=== PATIENT | female | born 1940 ===

== ENCOUNTER 2016-12-03 11:30 | Emergency (ER) | payer MEDICARE ==
[2016-12-03 11:49] VITALS: BP 111/65; PULSE 67; RESP 16; TEMP 97.8; O2SAT 98; BMI 25.1
--- NOTE | 2016-12-03 13:05 | RAD ---
PROCEDURE: Right knee dated 12/03/2016 AP lateral and sunrise views of the right knee performed. HISTORY: pain COMPARISON: No prior study available for comparison. FINDINGS: BONES: No evidence of acute displaced fracture nor dislocation. Osseous structures appear intact. JOINTS: Degenerative osteoarthritis most notably affecting the medial compartment with medial joint space narrowing and marginal medial osteophyte formation. A prominent posterior patellar osteophytes also present JOINT EFFUSION: . Questionable trace joint effusion. OTHER FINDINGS: None. IMPRESSION: No acute fracture. DJD most notably affecting the medial and patellofemoral compartments.
--- NOTE | 2016-12-03 13:08 | ED PDOC ---
Lower Extremity Pain/Injury Time Seen by Provider: 12/03/16 12:02 Chief Complaint (Nursing): Lower Extremity Problem/Injury Chief Complaint (Provider): Lower Extremity Problem/Injury History Per: Patient History/Exam Limitations: no limitations, language barrier ([id number] video phone) Onset/Duration Of Symptoms: Days Current Symptoms Are (Timing): Still Present Severity: Mild Additional Complaint(s): Patient is a 76 year old female with a history of arthritis, presents to ED for right knee pain and occasional swelling for 2 weeks. Patient reports pain is chronic but has worsened. Denies chest pain, palpations, back pain, lower leg swelling. History of varicose veins with striping bilaterally. Past Medical History Reviewed: Historical Data, Nursing Documentation, Vital Signs Vital Signs: Last Vital Signs Temp 97.8 F 12/03/16 11:48 Pulse 67 12/03/16 11:48 Resp 16 12/03/16 11:48 BP 111/65 12/03/16 11:48 Pulse Ox 98 12/03/16 11:48 - Medical History PMH: Arthritis Denies: Chronic Kidney Disease - Surgical History Surgical History: - Family History Family History: States: Unknown Family Hx - Living Arrangements Living Arrangements: With Family - Home Medications Home Medications: Ambulatory Orders Medication Instructions Recorded Ca Pantothenate/Folic Acid/V [Once 1 tab PO DAILY 07/19/14 Daily Multi-Vitamin] Calcium/Vitamin D [Calcium + D 600 2 tab PO DAILY 07/19/14 mg-200 Iu] Glucosamine Hydrochloride 2 cap PO DAILY 07/19/14 [Glucosamine HCl] traMADol [Ultram] 50 mg PO Q6 PRN #16 tab 08/02/15 Docusate [Colace] 100 mg PO BID #10 cap 06/05/16 oxyCODONE/Acetaminophen [Percocet 1 ea PO Q6 PRN #10 tab 06/05/16 5/325 mg Tab] Cephalexin [cephalexin] 500 mg PO BID #14 cap 09/24/16 Terbinafine HCl 250 mg PO BID #28 tablet 09/24/16 - Allergies Allergies/Adverse Reactions: Allergies Allergy/AdvReac Type Severity Reaction Status Date / Time No Known Allergies Allergy Verified 12/03/16 11:51 Review of Systems ROS Statement: Except As Marked, All Systems Reviewed And Found Negative Constitutional: Negative for: Weakness Cardiovascular: Negative for: Chest Pain, Palpitations Respiratory: Negative for: Shortness of Breath, Hemoptysis Musculoskeletal: Positive for: Leg Pain. Negative for: Back Pain, Foot Pain Skin: Negative for: Rash Neurological: Negative for: Weakness, Numbness Physical Exam - Reviewed Nursing Documentation Reviewed: Yes Vital Signs Reviewed: Yes - Physical Exam Appears: Positive for: Non-toxic, No Acute Distress Skin: Positive for: Normal Color, Warm Eye Exam: Positive for: Normal appearance Neck: Positive for: Normal, Painless ROM Cardiovascular/Chest: Positive for: Regular Rate, Rhythm. Negative for: Murmur Respiratory: Positive for: Normal Breath Sounds. Negative for: Respiratory Distress Back: Positive for: Normal Inspection. Negative for: Vertebral Tenderness Extremity: Positive for: Normal ROM, Tenderness (Right knee: (+) pain with flextion, tenderness anterior knee with possible effusion medially ), Other ( Arthritic changes to bilateral hands. Varicose veins bilaterallys. ). Negative for: Pedal Edema, Calf Tenderness, Deformity Neurologic/Psych: Positive for: Alert, Oriented - ECG O2 Sat by Pulse Oximetry: 98 (RA) Pulse Ox Interpretation: Normal Medical Decision Making Medical Decision Making: Time: 1220 Initial impression: Knee pain like related to arthritis r/o DVT sec to veins Initial plan: -- Knee xray -- Tylenol PO -- Duplex Scribe Attestation: Documented by Janeen Jauregui acting as a scribe for Rangel Pineda PA-C. MD Scribe Attestation: All medical record entries made by the Scribe were at my direction and personally dictated by me. I have reviewed the chart and agree that the record accurately reflects my personal performance of the history, physical exam, medical decision making, and the department course for this patient. I have also personally directed, reviewed, and agree with the discharge instructions and disposition. US: duplex IMPRESSION: No evidence of deep venous thrombosis in the right lower extremity. X-ray: IMPRESSION: No acute fracture. DJD most notably affecting the medial and patellofemoral compartments. pain improved knee immbolizer placed discussed need for tylenol for pain, follow up with PMD for re-evaluation return information discussed stable for discharge Disposition - Clinical Impression Clinical Impression: DJD (degenerative joint disease) of knee - Patient ED Disposition Is Patient to be Admitted: No Counseled Patient/Family Regarding: Studies Performed, Diagnosis, Need For Followup, Rx Given - Disposition Referrals: Warren Gtz III, MD [Staff Provider] - [facility] [Outside] Disposition: Routine/Home Disposition Time: 14:29 Condition: IMPROVED Additional Instructions: tylenol and motrin over the counter for pain follow up without fail with your doctor return for any new concerns do not wear the brace to sleep. Instructions: Arthritis (ED), Knee Pain (ED), Osteoarthritis (ED) Print Language: SALVADOREAN
--- NOTE | 2016-12-03 14:23 | US ---
PROCEDURE: Right lower extremity venous duplex Doppler. HISTORY: pain COMPARISON: None available. TECHNIQUE: Common femoral, superficial femoral, popliteal and posterior tibial veins were evaluated. Flow was assessed with color Doppler, compressibility, assessment of phasic flow and augmentation response. FINDINGS: COMMON FEMORAL VEIN: Unremarkable. SUPERFICIAL FEMORAL VEIN: Unremarkable. POPLITEAL VEIN: Unremarkable. POSTERIOR TIBIAL VEIN: Unremarkable. OTHER FINDINGS: None. IMPRESSION: No evidence of deep venous thrombosis in the right lower extremity.
== END 2016-12-03 15:00 | disposition home or self-care (01) ==
LOC: H.ER 11:30
DX: M17.11 Unilateral primary osteoarthritis, right knee (principal)

== ENCOUNTER 2017-06-20 22:14 | Emergency (ER) | payer MEDICARE ==
[2017-06-20 22:15] VITALS: BMI 25.1
[2017-06-20 22:24] VITALS: TEMP 98.1
[2017-06-20] MEDS ORDERED: Oxycodone/Acetaminophen 5/325 mg Tab PO ONE (22:41)
--- NOTE | 2017-06-20 22:48 | ED PDOC ---
HPI: General Adult Time Seen by Provider: 06/20/17 22:28 Chief Complaint (Nursing): Chest Pain Chief Complaint (Provider): Back pain History Per: Patient History/Exam Limitations: no limitations Onset/Duration Of Symptoms: Days (today) Current Symptoms Are (Timing): Still Present Additional Complaint(s): Pt. developed low back pain like spasms today morning. Took ibuprofen 2 hrs ago and still has pain. Pt. has had same pain in the past and goes away. No new injury. Same type of pain on the right lateral chest that occurs on movement. No dyspnea, weakness, dizziness, headaches, numbness, tingles, incontinence, constipation. No abd pain. No leg pain. Pain in back also present on movement. Past Medical History Reviewed: Historical Data, Nursing Documentation, Vital Signs Vital Signs: Last Vital Signs Temp 98.1 F 06/20/17 22:20 Pulse 79 06/20/17 22:52 Resp 16 06/20/17 22:20 BP 135/69 06/20/17 22:52 Pulse Ox 99 06/20/17 22:51 - Medical History PMH: Arthritis Denies: Chronic Kidney Disease - Surgical History Surgical History: - Family History Family History: States: Unknown Family Hx - Living Arrangements Living Arrangements: With Family - Social History Current smoker - smoking cessation education provided: No Alcohol: None Drugs: Denies - Home Medications Home Medications: Ambulatory Orders Medication Instructions Recorded Ca Pantothenate/Folic Acid/V [Once 1 tab PO DAILY 07/19/14 Daily Multi-Vitamin] Calcium/Vitamin D [Calcium + D 600 2 tab PO DAILY 07/19/14 mg-200 Iu] Diazepam [Valium] 2 mg PO BID PRN #6 tab 06/20/17 - Allergies Allergies/Adverse Reactions: Allergies Allergy/AdvReac Type Severity Reaction Status Date / Time No Known Allergies Allergy Verified 12/03/16 11:51 Review of Systems Constitutional: Negative for: Weakness Cardiovascular: Positive for: Chest Pain (right lateral). Negative for: Edema, Light Headedness Respiratory: Negative for: Shortness of Breath Gastrointestinal: Negative for: Nausea, Vomiting, Abdominal Pain Musculoskeletal: Positive for: Back Pain. Negative for: Neck Pain, Shoulder Pain, Arm Pain, Hand Pain, Leg Pain Neurological: Negative for: Weakness, Numbness, Headache, Dizziness Physical Exam - Reviewed Nursing Documentation Reviewed: Yes Vital Signs Reviewed: Yes - Physical Exam Appears: Positive for: Non-toxic, No Acute Distress Head Exam: Positive for: ATRAUMATIC, NORMAL INSPECTION, NORMOCEPHALIC Skin: Positive for: Normal Color, Warm, DRY Neck: Positive for: Normal, Painless ROM Cardiovascular/Chest: Positive for: Regular Rate, Rhythm. Negative for: Chest Non Tender (pain to lateral chest right on movement of body ), Edema Respiratory: Positive for: CNT, Normal Breath Sounds Gastrointestinal/Abdominal: Positive for: Normal Exam, Bowel Sounds, Soft. Negative for: Tenderness Back: Positive for: Other (mild tender across lower). Negative for: L CVA Tenderness, R CVA Tenderness Extremity: Positive for: Normal ROM. Negative for: Tenderness, Pedal Edema Neurologic/Psych: Positive for: Alert, Oriented - ECG ECG: Positive for: Interpreted By Me, Viewed By Me ECG Rhythm: Positive for: Normal QRS, Normal ST Segment, Sinus Rhythm O2 Sat by Pulse Oximetry: 99 Pulse Ox Interpretation: Normal - Radiology X-Ray: Interpreted by Me, Viewed By Me X-Ray Interpretation: No Acute Disease - Progress ED Course And Treament: 2337: Stable. AAOx3. Pain free. Ambulated with no issues. Tolerated PO. Moving with no pain in chest or back. Has 800mg ibuprofen at home. Will rx valium. Disposition - Clinical Impression Clinical Impression: Muscle spasm - Patient ED Disposition Is Patient to be Admitted: No Counseled Patient/Family Regarding: Studies Performed, Diagnosis, Need For Followup, Rx Given - Disposition Referrals: [facility] [Outside] - 06/21/17 Disposition: Routine/Home Disposition Time: 23:39 Condition: STABLE Additional Instructions: Return if not better in 3 days. Prescriptions: Diazepam [Valium] 2 mg PO BID PRN #6 tab PRN Reason: Muscle Spasm Instructions: Muscle Spasm (ED) Forms: [employer] (Chinese) Print Language: TURKMEN
[2017-06-20] MEDS ORDERED: Oxycodone/Acetaminophen 5/325 mg Tab ONE (23:18)
[2017-06-21 00:04] VITALS: BP 139/71; PULSE 73; RESP 19; O2SAT 100
--- NOTE | 2017-06-21 10:31 | RAD ---
PROCEDURE: Radiographs of the Lumbar Spine. HISTORY: back pain COMPARISON: No prior. FINDINGS: BONES: Vertebral bodies are maintained in height. Transverse processes and posterior elements are intact. 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 There is grade 1 anterolisthesis at L5-S1. There is questionable minimal retrolisthesis at L4-5. This is seen on the coned-down lateral view but not on the open lateral view. This is likely due to differences in patient positioning. Normal alignment. No listhesis. No fracture. DISC SPACES: Narrowing of the L4-5 and L5-S1 disc spaces consistent with degenerative disc disease. The remaining intervertebral disc spaces are maintained in height. OTHER FINDINGS: None. IMPRESSION: No acute fracture. Grade 1 anterolisthesis L5-S1. Questionable retrolisthesis, minimal, at L4-5. Degenerative disc disease L4-5 and L5-S1. Rotatory levoscoliosis.
--- NOTE | 2017-06-21 11:06 | RAD ---
HISTORY: Dyspnea COMPARISON: 04/22/2016 TECHNIQUE: Chest PA and lateral FINDINGS: LUNGS: No active pulmonary disease. PLEURA: No significant pleural effusion identified. No pneumothorax apparent. CARDIOVASCULAR: No radiographic findings to suggest acute or significant cardiovascular disease. OSSEOUS STRUCTURES: No significant abnormalities. VISUALIZED UPPER ABDOMEN: Normal. OTHER FINDINGS: None. IMPRESSION: No active disease. No significant interval change compared to the prior examination(s). Concordant results with the preliminary interpretation rendered by the emergency department physician procedure.
--- NOTE | 2017-06-21 12:43 | CARD ---
APPROVED REPORT EKG Measurement Heart [id number] DC [id number] [id number] <Conclusion> Normal sinus rhythm Left axis deviation Abnormal ECG
== END 2017-06-21 00:16 | disposition home or self-care (01) ==
LOC: H.ER 22:14
DX: R07.89 Other chest pain (principal); M62.838 Other muscle spasm

== ENCOUNTER 2018-08-28 08:43 | Observation (INO) | payer MEDICARE ==
[2018-08-28 08:46] VITALS: BMI 22.3
--- NOTE | 2018-08-28 09:53 | ED PDOC ---
Syncope/Near Syncope/Dizziness Time Seen by Provider: 08/28/18 09:22 Chief Complaint (Nursing): Dizziness/Lightheaded Chief Complaint (Provider): Syncope History Per: Patient, Relocation Counselor (Migueljolene #[id number]) History/Exam Limitations: no limitations Onset/Duration Of Symptoms: Mins (just before arrival) Current Symptoms Are (Timing): Still Present Additional Complaint(s): 78 year old female presents to the ED for evaluation of a syncopal episode s/p feeling lightheaded and falling face first on a ceramic floor while at a school just prior to arrival. She reports the episode happened very fast and she is unsure exactly how it happened, but does say she lost consciousness for about one minute before waking up on her own and coming to the ED. Patient is now complaining of a headache. Otherwise denies vomiting, chest pain, and shortness of breath. PMD: Jose G Cadet Past Medical History Reviewed: Historical Data, Nursing Documentation, Vital Signs Vital Signs: Last Vital Signs Temp 97.7 F 08/28/18 08:47 Pulse 82 08/28/18 08:47 Resp 20 08/28/18 08:47 BP 153/77 H 08/28/18 08:47 Pulse Ox 100 08/28/18 08:47 - Medical History PMH: Arthritis Denies: Chronic Kidney Disease - Surgical History Surgical History: Other surgeries: cataracts surgery - Family History Family History: States: Unknown Family Hx - Social History Current smoker - smoking cessation education provided: No Alcohol: None Drugs: Denies - Home Medications Home Medications: Ambulatory Orders Medication Instructions Recorded Ca Pantothenate/Folic Acid/V [Once 1 tab PO DAILY 07/19/14 Daily Multi-Vitamin] Calcium/Vitamin D [Calcium + D 600 2 tab PO DAILY 07/19/14 mg-200 Iu] Diazepam [Valium] 2 mg PO BID PRN #6 tab 06/20/17 Cyclobenzaprine [Cyclobenzaprine 10 mg PO TID PRN #15 tab 06/22/17 HCl] Naproxen [Naprosyn] 500 mg PO BID PRN #15 tablet 06/22/17 - Allergies Allergies/Adverse Reactions: Allergies Allergy/AdvReac Type Severity Reaction Status Date / Time No Known Allergies Allergy Verified 12/03/16 11:51 Review of Systems ROS Statement: Except As Marked, All Systems Reviewed And Found Negative Cardiovascular: Positive for: Light Headedness. Negative for: Chest Pain Respiratory: Negative for: Shortness of Breath Gastrointestinal: Negative for: Vomiting Neurological: Positive for: Headache, Other (loss of consciousness) Physical Exam - Reviewed Nursing Documentation Reviewed: Yes Vital Signs Reviewed: Yes - Physical Exam Appears: Positive for: No Acute Distress Head Exam: Positive for: NORMOCEPHALIC. Negative for: ATRAUMATIC (abrasion over right eyelid with no laceration; small abrasion to right cheek) Skin: Positive for: Normal Color Eye Exam: Positive for: Normal appearance ENT: Positive for: Normal ENT Inspection. Negative for: Other (epistaxis from bilateral nares) Neck: Positive for: Normal, Painless ROM, Supple Cardiovascular/Chest: Positive for: Regular Rate, Rhythm Respiratory: Positive for: Normal Breath Sounds. Negative for: Respiratory Distress Gastrointestinal/Abdominal: Positive for: Normal Exam, Soft. Negative for: Tenderness Back: Positive for: Normal Inspection Extremity: Positive for: Normal ROM, Other (strength 5/5 in bilateral upper and lower extremities) Neurologic/Psych: Positive for: Alert, Oriented (x3). Negative for: Motor/Sensory Deficits - Laboratory Results Result Diagrams: 08/28/18 09:58 08/28/18 09:58 - ECG ECG: Positive for: Interpreted By Me, Viewed By Me ECG Rhythm: Positive for: Normal ST Segment, Sinus Rhythm (normal at 70 bpm). Negative for: ST/T Changes O2 Sat by Pulse Oximetry: 100 (RA) Pulse Ox Interpretation: Normal Medical Decision Making Medical Decision Making: Time: 948 Initial Impression: syncope Initial Plan: --CT head without contrast --CT orbits/facial without contrast --CMP --Trop I --CBC with differential 1025 CT Head FINDINGS: HEMORRHAGE: No intracranial hemorrhage. BRAIN: There are mild chronic microangiopathic changes. There is no mass, mass effect or abnormal extra-axial fluid collection. There is no territorial infarction. The midline sagittal structures are normal. VENTRICLES: There is mild age-related global parenchymal volume loss and proportionate enlargement of the ventricles and cortical sulci. CALVARIUM: There is no calvarial fracture or extracranial soft tissue swelling. PARANASAL SINUSES: Predominantly clear. MASTOID AIR CELLS: Predominantly clear. OTHER FINDINGS: There is moderate right periorbital soft tissue swelling. IMPRESSION: No acute intracranial abnormality. Mild chronic microangiopathic changes and mild age-related global parenchymal volume loss. Moderate right periorbital soft tissue swelling. 1029 CT Orbits FINDINGS: RIGHT ORBIT: RIGHT BONY ORBIT: Normal. RIGHT INTRAORBITAL STRUCTURES: Globe: Normal. Extraocular muscles: Normal. Post septal space: Normal. Optic Nerve: Normal. Lacrimal Apparatus: Normal. RIGHT PRESEPTAL SOFT TISSUES: Moderate periorbital soft tissue swelling. LEFT ORBIT: LEFT BONY ORBIT: Normal. LEFT INTRAORBITAL STRUCTURES: Globe: Normal. Postsurgical changes. Extraocular muscles: Normal. Post septal space: Normal Optic Nerve: Normal. . Lacrimal Apparatus: Normal. LEFT PRESEPTAL SOFT TISSUES: Normal. OTHER: Moderate polypoid mucosal thickening in the right maxillary sinus and mild mucosal thickening in the left maxillary sinus. The nasal septum is deviated to the left IMPRESSION: No acute fracture. Moderate right periorbital soft tissue swelling. No evidence for orbital emphysema, intra bulbar hemorrhage or any other acute finding. 1200 Labs reviewed and unremarkable, and patient tolerated PO. Family at bedside with patient. Scribe Attestation: Documented by Mariela Redmond acting as a scribe for Ganesh Pierre MD. Provider Scribe Attestation: All medical record entries made by the Scribe were at my direction and personally dictated by me. I have reviewed the chart and agree that the record accurately reflects my personal performance of the history, physical exam, [facility] decision making, and the department course for this patient. I have also personally directed, reviewed, and agree with the discharge instructions and disposition. Disposition - Disposition Forms: [employer] (Emirati)
[2018-08-28 10:22] LABS: BASO # 0.1 K/uL (0.0-0.2); LYMPH # 2.3 K/uL (1.0-4.3); LYMPH % 31.3 % (20.0-40.0); MEAN CELL VOLUME 94.2 fl (81.0-99.0); MEAN CORPUSCULAR HGB CONC 32.9 g/dL (33.0-37.0); MEAN PLATELET VOLUME 8.4 fl (7.2-11.7); MONO # 0.7 K/uL (0.0-0.8); MONO % 9.2 % (0.0-10.0); NEUT # 4.3 K/uL (1.8-7.0); NEUT % 58.5 % (50.0-75.0); NRBC % 0.1 % (0.0-0.0); RBC 3.88 Mil/uL (3.80-5.20); RED CELL DISTRIBUTION WIDTH 14.7 % (11.5-14.5); WHITE BLOOD COUNT 7.3 K/uL (4.8-10.8)
[2018-08-28 10:28] LABS: ALBUMIN 4.1 g/dL (3.5-5.0); ALT/SGPT 31 U/L (9-52); AST/SGOT 46 U/L (14-36); BLOOD UREA NITROGEN 17 mg/dl (7-17); CALCIUM 9.6 mg/dL (8.4-10.2); GFR NON-AFRICAN AMERICAN > 60
--- NOTE | 2018-08-28 10:29 | CT ---
Date of service: 08/28/2018 PROCEDURE: CT HEAD WITHOUT CONTRAST. HISTORY: headache COMPARISON: 01/08/2015. TECHNIQUE: Axial computed tomography images were obtained through the head/brain without intravenous contrast. Radiation dose: Total exam DLP = 683.52 mGy-cm. This CT exam was performed using one or more of the following dose reduction techniques: Automated exposure control, adjustment of the mA and/or kV according to patient size, and/or use of iterative reconstruction technique. FINDINGS: HEMORRHAGE: No intracranial hemorrhage. BRAIN: There are mild chronic microangiopathic changes. There is no mass, mass effect or abnormal extra-axial fluid collection. There is no territorial infarction. The midline sagittal structures are normal. VENTRICLES: There is mild age-related global parenchymal volume loss and proportionate enlargement of the ventricles and cortical sulci. CALVARIUM: There is no calvarial fracture or extracranial soft tissue swelling. PARANASAL SINUSES: Predominantly clear. MASTOID AIR CELLS: Predominantly clear. OTHER FINDINGS: There is moderate right periorbital soft tissue swelling. IMPRESSION: No acute intracranial abnormality. Mild chronic microangiopathic changes and mild age-related global parenchymal volume loss. Moderate right periorbital soft tissue swelling.
--- NOTE | 2018-08-28 10:32 | CT ---
Date of service: 08/28/2018 PROCEDURE: CT ORBITS WITHOUT CONTRAST. HISTORY: r facial swelling COMPARISON: None available. TECHNIQUE: Axial CT images of the orbits were obtained. Coronal and sagittal reformats were generated. Radiation dose: Total exam DLP = 693.82 mGy-cm. This CT exam was performed using one or more of the following dose reduction techniques: Automated exposure control, adjustment of the mA and/or kV according to patient size, and/or use of iterative reconstruction technique. FINDINGS: RIGHT ORBIT: RIGHT BONY ORBIT: Normal. RIGHT INTRAORBITAL STRUCTURES: Globe: Normal. Extraocular muscles: Normal. Post septal space: Normal. Optic Nerve: Normal. Lacrimal Apparatus: Normal. RIGHT PRESEPTAL SOFT TISSUES: Moderate periorbital soft tissue swelling. LEFT ORBIT: LEFT BONY ORBIT: Normal. LEFT INTRAORBITAL STRUCTURES: Globe: Normal. Postsurgical changes. Extraocular muscles: Normal. Post septal space: Normal Optic Nerve: Normal. . Lacrimal Apparatus: Normal. LEFT PRESEPTAL SOFT TISSUES: Normal. OTHER: Moderate polypoid mucosal thickening in the right maxillary sinus and mild mucosal thickening in the left maxillary sinus. The nasal septum is deviated to the left IMPRESSION: No acute fracture. Moderate right periorbital soft tissue swelling. No evidence for orbital emphysema, intra bulbar hemorrhage or any other acute finding.
[2018-08-28] MEDS ORDERED: Sodium Chloride 0.9% 1,000 ML IV STA (12:00)
[2018-08-28] MEDS ORDERED: Pneumococcal 23-Valent Vaccine IM ONE (16:00)
--- NOTE | 2018-08-28 19:46 | US ---
Date of service: 08/28/2018 PROCEDURE: Duplex ultrasound of the carotid and vertebral arteries. HISTORY: syncope COMPARISON: None available. TECHNIQUE: Grayscale and duplex Doppler evaluation of the cervical carotid and vertebral arteries were performed. The common carotid, carotid bifurcations and cervical ICA and proximal ECA were evaluated. The vertebral arteries were evaluated for gross patency and direction. FINDINGS: RIGHT CAROTID ARTERIES: Common Carotid Artery: Very mild intimal thickening and plaque. Maximal flow velocity of 73.5 cm/s. Carotid Bifurcation: Mild plaque is noted. Internal Carotid Artery:Mild intimal thickening and plaque. Without luminal narrowing. Maximal flow velocity of 106 cm/s. External Carotid Artery (proximal branches): Normal. Maximal flow velocity of 71 cm/s. ICA/CCA Ratio: 1.9 LEFT CAROTID ARTERIES: Common Carotid Artery: Mild intimal thickening and plaque. Maximal flow velocity of 72 cm/s. Carotid Bifurcation: Mild plaque. Internal Carotid Artery:Mild plaque. Maximal flow velocity of 76 cm/s. External Carotid Artery (proximal branches): Normal. Maximal flow velocity of 64 cm/s. ICA/CCA Ratio: 1.8 VERTEBRAL ARTERIES: Right Vertebral Artery: Patent. Antegrade flow. Left Vertebral Artery: Patent. Antegrade flow. OTHER FINDINGS: No abnormal extrinsic compression. No appreciable adenopathy on the images presented. IMPRESSION: No peak systolic velocity elevation to suggest carotid bifurcation stenosis.
[2018-08-29 06:00] LABS: HDL CHOLESTEROL 55 MG/DL (30-70)
[2018-08-29 06:11] LABS: LDL CHOLESTEROL 102 mg/dL (0-129)
--- NOTE | 2018-08-29 06:49 | CARD ---
APPROVED REPORT Date of service: 08/28/2018 EXAM: Two-dimensional and M-mode echocardiogram with Doppler and color Doppler. Other Information Quality : GoodRhythm : NSR INDICATION Syncope 2D DIMENSIONS IVSd1.11 (0.7-1.1cm)LVDd4.01 (3.9-5.9cm) LVOT Diameter1.77 (1.8-2.4cm)PWd0.82 (0.7-1.1cm) IVSs1.30 (0.8-1.2cm)LVDs2.45 (2.5-4.0cm) FS (%) 39.0 %PWs1.15 (0.8-1.2cm) M-Mode DIMENSIONS Left Atrium (MM)3.27 (2.5-4.0cm)IVSd0.80 (0.7-1.1cm) Aortic Root2.83 (2.2-3.7cm)LVDd4.97 (4.0-5.6cm) Aortic Cusp Exc.1.57 (1.5-2.0cm)PWd0.80 (0.7-1.1cm) IVSs1.29 cmFS (%) 48 % LVDs2.60 (2.0-3.8cm)PWs1.62 cm Aortic Valve AoV Peak Swxmajim787.9cm/sAoV VTI34.7cmAO Peak GR.11mmHg LVOT Peak Xrddbinw652.5cm/sLVOT VTI22.82cmAO Mean GR.5mmHg ZAKI (VMAX)0.65qr6MCH (VTI)0.97cm2 Mitral Valve MV E Qtnfyssq19.6cm/sMV DECEL ARQX559qpBS A Mwhhcqco21.0cm/s MV QZQ49afM/A ratio0.9MVA (PHT)4.63cm2 TDI Lateral E' Peak V9.45cm/sMedial E' Peak V10.59cm/sE/Lateral E'9.0 E/Medial E'8.0 Pulmonary Valve PV Peak Eqydcqeo077.0cm/s Tricuspid Valve TR Peak Traeolns135gj/sRAP DYOAWWQZ35bmPjEI Peak Gr.5mmHg UKQD82qbCy LEFT VENTRICLE The left ventricle is normal size. There is normal left ventricular wall thickness. The left ventricular systolic function is normal. The estimated ejection fraction is 60-65% No regional wall motion abnormalities noted.. Transmitral Doppler flow pattern is Grade I-abnormal relaxation pattern. No left ventricle thrombus noted on this study. There is no ventricular septal defect visualized. There is no left ventricular aneurysm. There is no mass noted in the left ventricle. RIGHT VENTRICLE The right ventricle is normal size. There is normal right ventricular wall thickness. The right ventricular systolic function is normal. ATRIA The left atrium size is normal. The right atrium size is normal. The interatrial septum is intact with no evidence for an atrial septal defect. AORTIC VALVE The aortic valve is normal in structure. Trace aortic regurgitation is present. There is no aortic valvular stenosis. There is no aortic valvular vegetation. MITRAL VALVE The mitral valve is normal in structure. There is no evidence of mitral valve prolapse. There is no mitral valve stenosis. There is no mitral valve regurgitation noted. TRICUSPID VALVE The tricuspid valve is normal in structure. There is trace tricuspid valve regurgitation noted. There is no tricuspid valve prolapse or vegetation. There is no tricuspid valve stenosis. PULMONIC VALVE The pulmonary valve is normal in structure. There is no pulmonic valvular regurgitation. There is no pulmonic valvular stenosis. GREAT VESSELS The aortic root is normal in size. The ascending aorta is normal in size. The pulmonary artery is normal. The IVC is normal in size and collapses >50% with inspiration. PERICARDIAL EFFUSION There is no pericardial effusion. There is no pleural effusion. <Conclusion> The estimated ejection fraction is 60-65% Transmitral Doppler flow pattern is Grade I-abnormal relaxation pattern. The left atrium size is normal. Trace aortic regurgitation is present. There is trace tricuspid valve regurgitation noted.
[2018-08-29 07:52] VITALS: RESP 18
[2018-08-29 11:52] VITALS: BP 107/68; PULSE 71; TEMP 98.3; O2SAT 98
--- NOTE | 2018-08-29 12:04 | CP.PCM.HP ---
History of Present Illness - History of Present Illness History of Present Illness: 78 yo female with history of arthritis, admitted yesterday due to syncopal episode; pt states she fell but she is unsure why, is not sure whether she was dizzy, and reports that it happened too fast for her to understand why she fell. She did not (and continues to not) have headache, chest pain, shortness of breath. Head CT done in ED showed no acute pathology; CT orbit showed no acute fracture. Echo cardiogram was done - EF 60-65%; carotid artery u/s done and showed no peak systolic velocity to suggest carotid bifurcation stenosis. When seen this am, she states she is well, is able to ambulate without difficulty. No dizziness, headache, blurry vision, chest pain, shortness of breath, or other sense of discomfort. Pt states she would like to go home. Present on Admission - Present on Admission Any Indicators Present on Admission: No Review of Systems - Review of Systems Review of Systems: as per hpi Past Patient History - Past Medical History & Family History Past Medical History?: Yes - Past Social History Smoking Status: Never Smoked - CARDIAC Hx Cardiac Disorders: No - PULMONARY Hx Respiratory Disorders: No - NEUROLOGICAL Hx Neurological Disorder: No - HEENT Hx HEENT Problems: No - RENAL Hx Chronic Kidney Disease: No - ENDOCRINE/METABOLIC Hx Endocrine Disorders: No - HEMATOLOGICAL/ONCOLOGICAL Hx Blood Disorders: No Hx AIDS: No Hx Human Immunodeficiency Virus (HIV): No - INTEGUMENTARY Hx Dermatological Problems: No - MUSCULOSKELETAL/RHEUMATOLOGICAL Hx Musculoskeletal Disorders: Yes Hx Falls: No - GASTROINTESTINAL Hx Gastrointestinal Disorders: No - GENITOURINARY/GYNECOLOGICAL Hx Genitourinary Disorders: No - PSYCHIATRIC Hx Psychophysiologic Disorder: No Hx Substance Use: No - SURGICAL HISTORY Hx Surgeries: Yes Hx Cataract Extraction: Yes - ANESTHESIA Hx Anesthesia: Yes Hx Anesthesia Reactions: No Hx Malignant Hyperthermia: No Meds Allergies/Adverse Reactions: Allergies Allergy/AdvReac Type Severity Reaction Status Date / Time No Known Allergies Allergy Verified 12/03/16 11:51 Physical Exam - Constitutional Appears: Non-toxic - Head Exam Head Exam: NORMOCEPHALIC - Eye Exam Eye Exam: Normal appearance - ENT Exam ENT Exam: Mucous Membranes Moist - Respiratory Exam Respiratory Exam: Clear to Auscultation Bilateral, NORMAL BREATHING PATTERN. absent: Wheezes - Cardiovascular Exam Cardiovascular Exam: REGULAR RHYTHM, +S1, +S2 - GI/Abdominal Exam GI & Abdominal Exam: Soft. absent: Tenderness - Extremities Exam Extremities exam: Positive for: normal inspection. Negative for: calf tenderness - Neurological Exam Neurological exam: Alert, Normal Gait, Oriented x3 - Skin Skin Exam: Normal Color, Warm Results - Vital Signs Recent Vital Signs: Last Vital Signs Temp 98.3 F 08/29/18 11:49 Pulse 71 08/29/18 11:49 Resp 18 08/29/18 11:49 BP 107/68 08/29/18 11:49 Pulse Ox 98 08/29/18 11:49 - Labs Result Diagrams: 08/28/18 09:58 08/28/18 09:58 Labs: Laboratory Results - last 24 hr 08/28/18 08/29/18 19:18 04:25 Troponin I < 0.0120 Triglycerides 90 D Cholesterol 192 LDL Cholesterol Direct 102 HDL Cholesterol 55 Assessment & Plan - Assessment and Plan (Free Text) Assessment: 78 yo F, admitted due to syncopal episode. Echo showedEG 60-65%, catorid u/s showed no stenosis. Afebrile, vitals stable, 2 neg troponins at least 6 hrs apart, lipid panel within normal limits. Plan: Patient was seen this am with Dr. Hernadez. She is stable for discharge; discussed with patient follow up with PMD Dr. Cadet in 1 week.
== END 2018-08-29 15:50 | disposition home or self-care (01) ==
LOC: H.ER 08:43 → H.ERHOLD 12:06 → H.TEL 14:12
PROVIDERS: ADMIT Family Medicine; ATTEND Family Medicine
DX: R55 Syncope and collapse (principal); R51 Headache; M19.90 Unspecified osteoarthritis, unspecified site; Z23 Encounter for immunization
CPT/HCPCS: 36415; 70450; 70480; 80053; 80061; 82948; 84484; 85025; 90732; 93306; 93880; 99285; G0009; G0378; J7030

== ENCOUNTER 2018-09-22 16:03 | Emergency (ER) | payer MEDICARE ==
[2018-09-22 16:04] VITALS: BMI 22.3
--- NOTE | 2018-09-22 17:00 | ED PDOC ---
HPI: General Adult Time Seen by Provider: 09/22/18 16:20 Chief Complaint (Nursing): Trauma Chief Complaint (Provider): Body wide pain History Per: Patient History/Exam Limitations: no limitations Onset/Duration Of Symptoms: Days (20x days) Current Symptoms Are (Timing): Still Present Severity: Moderate Additional Complaint(s): 78 year old female with a past medical history of osteoarthritis presents to the ED for an evaluation of body wide pain that has been ongoing for 20x days. Patient reports that approximately 20x days ago, she had a fainting episode where she fell onto both of her hands (causing bilateral arm pain). Patient was hospitalized overnight for a workup for syncope (all of which was negative). Approximately 2x days later, patient began having neck pain, shoulder pain, bilateral hip pain, and back pain in addition to bilateral arm pain. Patient was seen by her PMD, who gave her an injection into her arm, which did not help. Patient was given ibuprofen which she took 2x doses of, and stopped because it did not help. Patient has since only been taking Dololed, a natural medication from [place] with some relief, but reports having pain when the medication wears off. Patient was referred to a exploration geologist who gave her injections in her knees, which did not help. Patient was referred to a pain management doctor, but decided to come to the ED for further evaluation. Patient reports that the pain prevents her from sleeping and she requires assistance all day long for things like getting dressed. Patient denies taking any medications for pain except for Dololed. Otherwise, patient denies having unilateral weakness, numbness, tingling, fevers, chills, night sweats, dysuria, or change in color of urine. PMD: Jose G Cadet MD Past Medical History Reviewed: Historical Data, Nursing Documentation, Vital Signs Vital Signs: Last Vital Signs Temp 97.8 F 09/22/18 16:08 Pulse 82 09/22/18 16:08 Resp 16 09/22/18 16:08 BP 152/78 H 09/22/18 16:08 Pulse Ox 97 09/22/18 16:08 MEG Report Viewed: Yes - Medical History PMH: Arthritis Denies: HIV, Chronic Kidney Disease - Surgical History Surgical History: - Family History Family History: States: No Known Family Hx - Social History Current smoker - smoking cessation education provided: No Alcohol: None Drugs: Denies - Home Medications Home Medications: Ambulatory Orders Medication Instructions Recorded Calcium Carbonate/Vitamin D3 1 tab PO Q12 08/28/18 [Caltrate 600 Plus D3 Tablet] Glucosa Lindo 2Kcl/Chondroitin Lindo 1 cap PO Q12 08/28/18 [Glucosamine & Chondroitin Cap] [place]-3 Fatty Acids/Fish Oil 1 gm PO Q12 08/28/18 [[place]ield-3 1,000 mg Softgel] Acetaminophen [Tylenol] 650 mg PO Q6 PRN 7 Days capsule 09/22/18 Cyclobenzaprine [Cyclobenzaprine 10 mg PO Q8 PRN 7 Days tab 09/22/18 HCl] Ibuprofen [Motrin Tab] 800 mg PO Q6 PRN 7 Days tab 09/22/18 - Allergies Allergies/Adverse Reactions: Allergies Allergy/AdvReac Type Severity Reaction Status Date / Time No Known Allergies Allergy Verified 09/22/18 16:05 Review of Systems ROS Statement: Except As Marked, All Systems Reviewed And Found Negative Constitutional: Negative for: Fever, Chills, Sweats Genitourinary Female: Negative for: Dysuria, Other (change in color of urine) Musculoskeletal: Positive for: Neck Pain, Shoulder Pain (bilateral), Arm Pain (bilateral), Back Pain, Other (bilateral hip pain) Neurological: Negative for: Weakness ((-) unilateral weakness), Numbness ((-) tingling) Physical Exam - Reviewed Nursing Documentation Reviewed: Yes Vital Signs Reviewed: Yes - Physical Exam Appears: Positive for: Non-toxic, Uncomfortable Head Exam: Positive for: ATRAUMATIC, NORMOCEPHALIC Neck: Positive for: Painless ROM (with flexion, extension, and lateral rotation), Supple. Negative for: Normal (tenderness to palpation of posterior cervical spine across shoulders. (-) paravertebral tenderness. (-) erythema, (-) swelling noted to neck) Cardiovascular/Chest: Positive for: Regular Rate, Rhythm Respiratory: Positive for: Normal Breath Sounds Back: Positive for: Other (Tenderness on palpation of upper back. normal flexion and extension of back. (-) erythema, (-) swelling noted to back) Extremity: Positive for: Tenderness (tenderness on palpation of bilateral upper and lower arms), Other (normal flexion and extension of hip bilaterally. (-) erythema, (-) swelling noted to hips. ) Neurologic/Psych: Positive for: Alert, Oriented (3x), Other ((-) pronator drift. (+) equal foot tapping bilaterally. (+) smile is symmetrical. (+) manager strategic marketing strength equal bilaterally of upper extremities.) - ECG O2 Sat by Pulse Oximetry: 97 (RA) Pulse Ox Interpretation: Normal Medical Decision Making Medical Decision Makin:20 Initial impression: 78 year old female with body wide pain Initial plan: * flexeril 10 mg PO once * toradol 30 mg IM once * reevaluation Scribe Attestation: Documented byShanique Ty, acting as a scribe for Yajaira Veliz PA-C. Provider Scribe Attestation: All medical record entries made by the Scribe were at my direction and personally dictated by me. I have reviewed the chart and agree that the record accurately reflects my personal performance of the history, physical exam, medical decision making, and the department course for this patient. I have also personally directed, reviewed, and agree with the discharge instructions and disposition. Disposition - Clinical Impression Clinical Impression: Musculoskeletal pain - Patient ED Disposition Is Patient to be Admitted: No - Disposition Referrals: Jose G Cadet MD [Family Provider] - Disposition: Routine/Home Disposition Time: 19:06 Condition: STABLE Additional Instructions: You are advised to f/u with pain specialist as soon as possible as recommended by your primary care physician. Take Ibuprofen, Flexeril and Tylenol as needed for pain. Return to ER if you start to have weakness or difficult walking. Prescriptions: Acetaminophen [Tylenol] 650 mg PO Q6 PRN 7 Days capsule PRN Reason: Pain, Moderate (4-7) Cyclobenzaprine [Cyclobenzaprine HCl] 10 mg PO Q8 PRN 7 Days tab PRN Reason: Pain, Moderate (4-7) Ibuprofen [Motrin Tab] 800 mg PO Q6 PRN 7 Days tab PRN Reason: Pain, Moderate (4-7) Instructions: Fibromyalgia (DC) Forms: [employer] (Kyrgyz) Print Language: TRISTANIAN
[2018-09-22 19:08] VITALS: BP 128/59; PULSE 62; RESP 18; TEMP 98
[2018-10-02 13:34] VITALS: O2SAT 97
== END 2018-09-22 19:06 | disposition home or self-care (01) ==
LOC: H.ER 16:03
DX: M79.18 Myalgia, other site (principal); M19.90 Unspecified osteoarthritis, unspecified site
CPT/HCPCS: 96372; 99284; J1885